=== PATIENT | female | born 1950 | race African-American/Black ===

== ENCOUNTER 2017-04-27 12:08 | Observation (INO) | payer MEDICARE, OTHER ==
[~2017-04-27] VITALS: Ht 149.9 cm; Wt 90.0 kg
[~2017-04-27 12:08] MED LIST: AMLO5TAB22 PO; CALTTAB5 PO; CHOL50006 PO; LISI-363 PO; MAXZ PO; METF500T PO; OMEGCAP21 PO
[2017-04-27 12:10] VITALS: BP 136/83; PULSE 73; RESP 14; TEMP 98.7; O2SAT 95
[2017-04-27 12:40] LABS: AUTOMATED NEUTROPHIL # 4.1 TH/MM3 (1.8-7.7); BASOPHIL # 0.1 TH/MM3 (0-0.2); BASOPHIL % 0.6 % (0.0-2.0); EOSINOPHIL # 0.3 TH/MM3 (0-0.4); EOSINOPHIL % 2.8 % (0.0-4.0); HEMATOCRIT 37.7 % (35.0-46.0); HEMO FLAGS DIFF FINAL; LYMPHOCYTE # 3.8 TH/MM3 (1.0-4.8); MEAN CELL VOLUME 88.6 FL (80.0-100.0); MEAN CORPUSCULAR HEMOGLOBIN 29.3 PG (27.0-34.0); MEAN CORPUSCULAR HGB CONC 33.1 % (32.0-36.0); MONO % 11.5 % (0.0-8.0); NEUT % 44.1 % (16.0-70.0); PLATELET COUNT 206 TH/MM3 (150-450); RED BLOOD COUNT 4.25 MIL/MM3 (4.00-5.30); RED CELL DISTRIBUTION WIDTH 15.5 % (11.6-17.2); WHITE BLOOD COUNT 9.3 TH/MM3 (4.0-11.0)
[2017-04-27 13:00] VITALS: BP 144/87; PULSE 61; RESP 18; O2SAT 99
[2017-04-27 13:01] LABS: ANION GAP 6 MEQ/L (5-15); BICARBONATE 27.5 MEQ/L (21.0-32.0); BLOOD UREA NITROGEN 14 MG/DL (7-18); CHLORIDE 107 MEQ/L (98-107); GLOMERULAR FILTRATION RATE 53 ML/MIN (>89); POTASSIUM 3.6 MEQ/L (3.5-5.1); SODIUM (NA) 140 MEQ/L (136-145)
[2017-04-27 13:05] LABS: CREATINE KINASE 277 U/L (26-192)
[2017-04-27] MEDS ORDERED: LISI-519 PO (13:07)
[2017-04-27] MEDS ORDERED: AMLO5TAB2 PO (13:07)
[2017-04-27] MEDS ORDERED: FURO1TAB62 PO (13:07)
--- NOTE | 2017-04-27 13:13 | PD ---
HPI Chief Complaint: Chest Pain Time Seen by Provider: 13:10 Travel History International Travel<30 days: No Contact w/Intl Traveler<30days: No Traveled to known affect area: No History of Present Illness HPI This is a 66-year-old female with history of diabetes and hypertension who presents for evaluation of chest pain. She reports that symptoms started initially this morning at 11:30 AM while she was sitting at [employer]. She describes it as a substernal chest tightness that radiated into the neck. Symptoms lasted for about 10 minutes, then subsided some, then returned and have waxed and waned since then. She is currently not having any discomfort, she just feels tired. She denies any shortness of breath, cough or congestion, nausea or vomiting, diaphoresis, abdominal pain, fevers or chills, flank. She reports that she had a similar pain about one year ago which went away on its own and she was never evaluated for it. She reports that she had a stress test approximately 10 years ago and she believes that it was normal. Denies tobacco use. Her primary care physician is Dr. Wright. No other complaints. [facility] Past Medical History Arthritis: No Asthma: No Autoimmune Disease: No Blood Disorders: No Heart Rhythm Problems: No Cancer: No Cardiovascular Problems: Yes High Cholesterol: No Chemotherapy: No Chest Pain: Yes Congestive Heart Failure: No COPD: No Cerebrovascular Accident: No Diabetes: Yes Patient Takes Glucophage: Yes Endocrine: No GERD: No Glaucoma: No Genitourinary: No Headaches: No Hepatitis: No Hiatal Hernia: No Hypertension: Yes Immune Disorder: No Kidney Stones: No Musculoskeletal: Yes Neurologic: Yes Psychiatric: No Respiratory: No Myocardial Infarction: No Radiation Therapy: No Renal Failure: No Seizures: No Sickle Cell Disease: No Sleep Apnea: No Thyroid Disease: No Ulcer: No Past Surgical History Abdominal Surgery: No AICD: No Cardiac Surgery: No Ear Surgery: No Endocrine Surgery: Yes (PITUITARY TUMOR REMOVAL IN 1983) Eye Surgery: No Genitourinary Surgery: No Gynecologic Surgery: Yes ( 1979 AND 1984) Joint Replacement: No Oral Surgery: No Pacemaker: No Thoracic Surgery: No Other Surgery: Yes (07/2005 BREAST REDUCTION) Social History Alcohol Use: Yes (OCCASSIONALLY; ANNUALLY AT [facility] TIME: [facility] W/ [place]) Tobacco Use: No Substance Use: No Allergies-Medications (Allergen,Severity, Reaction): Coded Allergies: iodine (Verified Allergy, Severe, Rash, 04/27/17) oxycodone (Verified Allergy, Severe, Rash, 04/27/17) potassium iodide (Verified Allergy, Severe, Rash, 04/27/17) povidone-iodine (Verified Allergy, Severe, Rash, 04/27/17) sodium iodide (Verified Allergy, Severe, Rash, 04/27/17) sodium iodide (Verified Allergy, Severe, Rash, 04/27/17) Reported Meds & Prescriptions Reported Meds & Active Scripts Active Reported Lasix (Furosemide) 20 Mg Tab 20 Mg PO DAILY Lisinopril 5 Mg Tab 5 Mg PO DAILY Amlodipine (Amlodipine Besylate) 5 Mg Tab 5 Mg PO DAILY Metformin (Metformin HCl) 500 Mg Tab 500 Mg PO DAILY With a meal Review of Systems Except as stated in HPI: all other systems reviewed are Neg Physical Exam Narrative GENERAL: Well-developed well-nourished female in no acute distress resting comfortably on hospital bed. SKIN: Warm and dry. HEAD: Atraumatic. Normocephalic. EYES: Pupils equal and round. No scleral icterus. No injection or drainage. ENT: No nasal bleeding or discharge. Mucous membranes pink and moist. NECK: Trachea midline. No JVD. CARDIOVASCULAR: Regular rate and rhythm. No murmur appreciated. RESPIRATORY: No accessory muscle use. Clear to auscultation. Breath sounds equal bilaterally. GASTROINTESTINAL: Abdomen soft, non-tender, nondistended. Hepatic and splenic margins not palpable. MUSCULOSKELETAL: No obvious deformities. No clubbing. No cyanosis. No edema. NEUROLOGICAL: Awake and alert. No obvious cranial nerve deficits. Motor grossly within normal limits. Normal speech. PSYCHIATRIC: Appropriate mood and affect; insight and judgment normal. Data Data Last Documented VS Vital Signs Date Time Temp Pulse Resp B/P (MAP) Pulse Ox O2 Delivery O2 Flow Rate FiO2 04/27/17 13:00 61 18 144/87 (106) 99 Room Air 04/27/17 12:10 98.7 Orders Orders Electrocardiogram (04/27/17 12:16) Complete Blood Count With Diff (04/27/17 12:16) Basic Metabolic Panel (Bmp) (04/27/17 12:16) Ckmb (Isoenzyme) Profile (04/27/17 12:16) Troponin I (04/27/17 12:16) Chest, Single Ap (04/27/17 12:16) CKMB (04/27/17 12:25) CKMB% (04/27/17 12:25) Aspirin Chew (Aspirin Chew) (04/27/17 13:15) Admit Order (Ed Use Only) (04/27/17 13:21) Labs Laboratory Tests Test 04/27/17 12:25 White Blood Count 9.3 TH/MM3 Red Blood Count 4.25 MIL/MM3 Hemoglobin 12.5 GM/DL Hematocrit 37.7 % Mean Corpuscular Volume 88.6 FL Mean Corpuscular Hemoglobin 29.3 PG Mean Corpuscular Hemoglobin Concent 33.1 % Red Cell Distribution Width 15.5 % Platelet Count 206 TH/MM3 Mean Platelet Volume 8.4 FL Neutrophils (%) (Auto) 44.1 % Lymphocytes (%) (Auto) 41.0 % Monocytes (%) (Auto) 11.5 % Eosinophils (%) (Auto) 2.8 % Basophils (%) (Auto) 0.6 % Neutrophils # (Auto) 4.1 TH/MM3 Lymphocytes # (Auto) 3.8 TH/MM3 Monocytes # (Auto) 1.1 TH/MM3 Eosinophils # (Auto) 0.3 TH/MM3 Basophils # (Auto) 0.1 TH/MM3 CBC Comment DIFF FINAL Differential Comment Blood Urea Nitrogen 14 MG/DL Creatinine 1.23 MG/DL Random Glucose 87 MG/DL Calcium Level 9.5 MG/DL Sodium Level 140 MEQ/L Potassium Level 3.6 MEQ/L Chloride Level 107 MEQ/L Carbon Dioxide Level 27.5 MEQ/L Anion Gap 6 MEQ/L Estimat Glomerular Filtration Rate 53 ML/MIN Total Creatine Kinase 277 U/L Creatine Kinase MB 1.7 NG/ML Creatine Kinase MB % 0.6 % Troponin I LESS THAN 0.02 NG/ML MDM Medical Decision Making Medical Screen Exam Complete: Yes Emergency Medical Condition: Yes Medical Record Reviewed: Yes Interpretation(s) EKG normal sinus rhythm Differential Diagnosis Angina, acute coronary syndrome, aortic dissection, pneumothorax, hemothorax, pneumonia, costochondritis, pulmonary embolism, GERD, pericarditis, myocarditis Narrative Course The patient will be placed on ECG monitoring and pulse oximetry. Twelve-lead EKG was obtained. The patient be given a full dose aspirin. Plan is for basic lab work, chest x-ray. The patient's initial lab work is reassuring with a normal troponin, non- ischemic EKG. Given the patient's risk factors including elevated BMI, age, diabetes, hypertension, recommended admission to the chest pain center for serial cardiac enzymes and rule out purposes. She is agreeable. Diagnosis Primary Impression: Chest pain Qualified Codes: R07.9 - Chest pain, unspecified Admitting Information Admitting Physician Requests: Jarett Castillo Apr 27, 2017 13:13
[2017-04-27] MEDS ORDERED: ASPIRIN 81 MG CHEW TAB CHEW ONE (13:15)
[2017-04-27 13:18] LABS: CKMB 1.7 NG/ML (0.5-3.6)
--- NOTE | 2017-04-27 13:20 | RADRPT ---
EXAM DATE/TIME: 04/27/2017 12:59 [facility] COMPARISON: TOE LEFT 5TH DIGIT (MIN 2VWS), February 16, 2015, 8:54. INDICATIONS : Chest pain MEDICAL HISTORY : Hypertension. Diabetes mellitus type II. SURGICAL HISTORY : None. ENCOUNTER: Initial ACUITY: 1 day PAIN SCORE: 0/10 LOCATION: chest FINDINGS: A single view of the chest demonstrates the lungs to be symmetrically aerated without evidence of mas s, infiltrate or effusion. The cardiomediastinal contours are unremarkable. Osseous structures are intact. CONCLUSION: 1. No acute cardiopulmonary findings. Joel Crain MD on April 27, 2017 at 13:17 Board Certified Radiologist. This report was verified electronically.
[2017-04-27] MEDS ORDERED: NITROGLYCERIN 0.4 MG SL 25 TABS/BTL SL PRN (13:45)
[2017-04-27] MEDS ORDERED: ACETAMINOPHEN 500 MG CPLT PO PRN (13:45)
[2017-04-27] MEDS ORDERED: ONDANSETRON HCL 4 MG/2 ML VIAL IV PUSH PRN (13:45)
[2017-04-27] MEDS ORDERED: SODIUM CHLORIDE 0.9% FLUSH 10 ML FLUSH IV FLUSH PRN (13:45)
--- NOTE | 2017-04-27 14:13 | HHI.HP ---
HPI Primary Care Physician Kassy Gabriel MD Chief Complaint Chest pain History of Present Illness 66 year old female with history of type II diabetes and hypertension presents to the ER for further evaluation of chest pain. Onset this morning around 1130 while at [employer]. Location substernal. Characterized as a gradual, squeezing, tightness with radiation to bilateral jaw. Duration last 10 minutes, pain subsided quick for 5 minutes before gradually returning lasting another 10 minutes. No associated symptoms of nausea, vomiting, dyspnea, or diaphoresis. No known precipitating or relieving factors. Endorses similar pain the past over 10 years ago, completed stress testing which was found to be unremarkable. Similar episodes one year ago but did not notify her primary care provider or was evaluated. Currently chest pain free without further chest discomfort. Review of Systems General: No fatigue,weakness, fever, chills, recent illness, or change in appetite. Has been in her general state of health. CV: As stated above. No current CP, pressure, or tightness. RESP: No SOB, cough, recent respiratory illness, or sputum production. GI: No nausea, vomiting, or bowel changes. No unintentional weight gain or weight loss. : No dysuria EXT: No lower leg edema, no paraesthesias MS: No discomfort or change in ROM NEURO: No difficulty with balance, LOC, motor/sensory deficits PSYCH: No anxiety or depression. Current situational stress. 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, C-sections x2, Breast reduction, back surgery ( not a fusion)-1993 Reported Medications Active Reported Lasix (Furosemide) 20 Mg Tab 20 Mg PO DAILY Lisinopril 5 Mg Tab 5 Mg PO DAILY Amlodipine (Amlodipine Besylate) 5 Mg Tab 5 Mg PO DAILY Metformin (Metformin HCl) 500 Mg Tab 500 Mg PO DAILY With a meal Active Ordered Medications Current Medications Medications (Trade) Dose Ordered Sig/Kvng Route Start Time Stop Time Status Last Admin (NS Flush) 2 ml UNSCH PRN IV FLUSH 04/27/17 13:45 (NS Flush) 2 ml BID IV FLUSH 04/27/17 21:00 (Tylenol) 500 mg Q4H PRN PO 04/27/17 13:45 (Zofran Inj) 4 mg Q6H PRN IV PUSH 04/27/17 13:45 (Nitrostat Sl) 0.4 mg Q5M PRN SL 04/27/17 13:45 (Aspirin) 325 mg DAILY PO 04/28/17 09:00 Family History Mother cardiac stents late 50s. Social History Known diabetes and hypertension. No known hyperlipidemia or coronary artery disease. PCP recently recommended guidelines to start statin therapy, however patient requested to wait. Lifelong nonsmoker. Denies any alcohol. Walks 5x/week, 2-3 miles daily. Past cardiac testing 10/08/2005 Lexiscan-no evidence of stress induced ischemia. EF 53%. Physical Exam Vital Signs Vital Signs Date Time Temp Pulse Resp B/P (MAP) Pulse Ox O2 Delivery O2 Flow Rate FiO2 04/27/17 13:00 61 18 144/87 (106) 99 Room Air 04/27/17 12:10 98.7 73 14 136/83 (100) 95 Physical Exam GENERAL: Alert WN, WD, NAD, pleasant, , obese female HEAD: NC, AT EYES: Sclera clear, conjunctiva without injection, pupils equal and round ENT: Mucous membranes pink and moist NECK: Supple, no masses, trachea midline CV: RRR, without murmur, rub, gallop, no JVD, S1-S2 no S3-S4. No carotid bruits. Chest wall tender with palpation, but not reproducible pain. RESP: Clear lungs throughout bilateral, no crackles, wheeze, rhonchi, symmetrical chest rise, nonlabored, able to speak in full sentences. ABD: Soft, NT, ND, no masses, positive bowel tones, obese EXT: Pulses +24, trace dependent pedal edema MS: Normal tone 4 extremities, nontender, no obvious deformities, full range of motion NEURO: CN II through CN XII grossly intact, motor strength 5/5 PSYCH: A+O 3, pleasant affect, appropriate speech, appropriate mood and affect , insight and judgment SKIN: Normal turgor, normal texture, no lesions, no rashes, even hair distribution Laboratory Laboratory Tests Test 04/27/17 12:25 White Blood Count 9.3 Red Blood Count 4.25 Hemoglobin 12.5 Hematocrit 37.7 Mean Corpuscular Volume 88.6 Mean Corpuscular Hemoglobin 29.3 Mean Corpuscular Hemoglobin Concent 33.1 Red Cell Distribution Width 15.5 Platelet Count 206 Mean Platelet Volume 8.4 Neutrophils (%) (Auto) 44.1 Lymphocytes (%) (Auto) 41.0 Monocytes (%) (Auto) 11.5 Eosinophils (%) (Auto) 2.8 Basophils (%) (Auto) 0.6 Neutrophils # (Auto) 4.1 Lymphocytes # (Auto) 3.8 Monocytes # (Auto) 1.1 Eosinophils # (Auto) 0.3 Basophils # (Auto) 0.1 CBC Comment DIFF FINAL Differential Comment Blood Urea Nitrogen 14 Creatinine 1.23 Random Glucose 87 Calcium Level 9.5 Sodium Level 140 Potassium Level 3.6 Chloride Level 107 Carbon Dioxide Level 27.5 Anion Gap 6 Estimat Glomerular Filtration Rate 53 Total Creatine Kinase 277 Creatine Kinase MB 1.7 Creatine Kinase MB % 0.6 Troponin I LESS THAN 0.02 Result Diagram: 04/27/17 1225 04/27/17 1225 Course EKG NSR, normal axis, no st segment changes, slight nonspecific T wave change Caprini VTE Risk Assessment Caprini VTE Risk Assessment: Mod/High Risk (score >= 2) Caprini Risk Assessment Model Point Value = 1 Point Value = 2 Point Value = 3 Point Value = 5 Age 41-60 Minor surgery BMI > 25 kg/m2 Swollen legs Varicose veins or History of unexplained or recurrent spontaneous Oral contraceptives or hormone replacement Sepsis (< 1 month) Serious lung disease, including pneumonia (< 1 month) Abnormal pulmonary function Acute myocardial infarction Congestive heart failure (< 1 month) History of inflammatory bowel disease Medical patient at bed rest Age 61-74 Arthroscopic surgery Major open surgery (> 45 min) Laparoscopic surgery (> 45 min) Malignancy Confined to bed (> 72 hours) Immobilizing plaster cast Central venous access Age >= 75 History of VTE Family history of VTE Factor V Leiden Prothrombin [id number] Lupus anticoagulant Anticardiolipin antibodies Elevated serum homocysteine Heparin-induced thrombocytopenia Other congenital or acquired thrombophilia Stroke (< 1 month) Elective arthroplasty Hip, pelvis, or leg fracture Acute spinal cord injury (< 1 month) Prophylaxis Regimen Total Risk Factor Score Risk Level Prophylaxis Regimen 0-1 Low Early ambulation 2 Moderate Order ONE of the following: *Sequential Compression Device (SCD) *Heparin 5000 units SQ BID 3-4 Higher Order ONE of the following medications: *Heparin 5000 units SQ TID *Enoxaparin/Lovenox 40 mg SQ daily (WT < 150 kg, CrCl > 30 mL/min) *Enoxaparin/Lovenox 30 mg SQ daily (WT < 150 kg, CrCl > 10-29 mL/min) *Enoxaparin/Lovenox 30 mg SQ BID (WT < 150 kg, CrCl > 30 mL/min) AND/OR *Sequential Compression Device (SCD) 5 or more Highest Order ONE of the following medications: *Heparin 5000 units SQ TID (Preferred with Epidurals) *Enoxaparin/Lovenox 40 mg SQ daily (WT < 150 kg, CrCl > 30 mL/min) *Enoxaparin/Lovenox 30 mg SQ daily (WT < 150 kg, CrCl > 10-29 mL/min) *Enoxaparin/Lovenox 30 mg SQ BID (WT < 150 kg, CrCl > 30 mL/min) AND *Sequential Compression Device (SCD) Assessment and Plan Assessment and Plan #1 Atypical chest pain-admitted to chest pain center. Rule out with 2 sets of EKG and cardiac enzymes. Monitor on telemetry. Seen and evaluated by Dr. Karlos Gonsalves. Instructed to notify RN if chest pain returns. Plan to complete exercise stress test if second EKG and cardiac enzyme are unremarkable. Patient agreeable to plan of care. #2 Diabetes-continues metformin. Continue daily activity and following a diabetic diet. Encouraged he to take PCP advice of starting statin therapy as appropriate with diabetic diagnoses. #3 Hypertension-continue furosemide, lisinopril, and amlodipine. Follow a low sodium diet. Ellyn Day Apr 27, 2017 14:13
[2017-04-27 14:42] VITALS: BP 135/79; PULSE 58; RESP 16; TEMP 98.6; O2SAT 100
[2017-04-27 16:13] LABS: CREATINE KINASE 256 U/L (26-192)
[2017-04-27 16:25] LABS: CKMB 1.2 NG/ML (0.5-3.6)
[2017-04-27 16:29] VITALS: BP 154/87; PULSE 62; RESP 16; TEMP 98.6; O2SAT 98
--- NOTE | 2017-04-27 17:24 | HHI.DCPOC ---
Discharge Care Plan Diagnosis: (1) Atypical chest pain (2) Hypertension (3) Type 2 diabetes mellitus (4) Situational stress Goals to Promote Your Health * To prevent worsening of your condition and complications * To maintain your health at the optimal level Directions to Meet Your Goals Take your medications as prescribed Follow your dietary instruction Follow activity as directed Keep your appointments as scheduled Take your immunizations and boosters as scheduled If your symptoms worsen call your PCP, if no PCP go to Urgent Care Center or Emergency Room Smoking is Dangerous to Your Health. Avoid second hand smoke Call the 24-hour hour crisis hotline for domestic abuse at Ellyn Day Apr 27, 2017 17:24
[2017-04-27] MEDS ORDERED: SODIUM CHLORIDE 0.9% FLUSH 10 ML FLUSH IV FLUSH SCH (21:00)
[2017-04-28] MEDS ORDERED: ASPIRIN 325 MG TAB PO SCH (09:00)
--- NOTE | 2017-04-29 07:23 | EKG ---
Date Performed: 04/27/2017 Time Performed: 15:34:56 PTAGE: 66 years EKG: SINUS BRADYCARDIA WITH FIRST DEGREE AV BLOCK NONSPECIFIC T-WAVE ABNORMALITY ABNORMAL ECG Si nce PREVIOUS TRACING , no significant change noted DOCTOR: Lauren Singh Interpretating Date/Time 04/29/2017 07:22:36
--- NOTE | 2017-04-29 07:23 | TR ---
Date Performed: 04/27/2017 Time Performed: 16:42:33 DOCTOR: Lauren Singh DRUG LIST: CLINICAL HISTORY: CHEST PAIN REASON FOR TEST: Chest pain REASON FOR ENDING: OBSERVATION: CONCLUSION: Flo protocol completed. Stopped sec to reaching target heart rate and leg fatigue. Maximum WU=166 Target HR Achieved=84.0% Maximum AG=442/84 Total Exercise Time=6:21. No reprod chest discomfort. No ectopy. No st segment changes to sugg ischemia. Diffuse T wave inversion once standing , not on baseline EKG, inferiorly. T wave normalized at peak. Good exericise tolerance. Recovery quic k and unremarkable. COMMENTS:
--- NOTE | 2017-04-29 07:23 | EKG ---
Date Performed: 04/27/2017 Time Performed: 12:25:05 PTAGE: 66 years EKG: Sinus rhythm NONSPECIFIC T-WAVE ABNORMALITY BORDERLINE ECG Since PREVIOUS TRACING , no significant change noted TRACIN10/08/2005 03.46 DOCTOR: Lauren Singh Interpretating Date/Time 04/29/2017 07:22:52
== END 2017-04-27 18:05 | disposition home or self-care (01) ==
LOC: NEPC 12:08 → NEDA 13:22 → NEPHCDU 14:44
DX: R07.89 Other chest pain (principal); I10 Essential (primary) hypertension; E11.9 Type 2 diabetes mellitus without complications; R94.31 Abnormal electrocardiogram [ECG] [EKG]
CPT/HCPCS: 71010; 80048; 82550; 82552; 84484; 85025; 93005; 93017; 99285; G0378